=== PATIENT | female | born 1995 | race Caucasian/White ===

== ENCOUNTER → 2017-04-22 | Outpatient (CLI) | payer MEDICAID ==
[~2017-04-22] MED LIST: BACTRIM DS 8001 TAB PO; CLINDAMYCIN HC300 MG PO; FLAGYL 500MG.500 MG PO; FLEXERIL10 MG PO; IRON TABLETS325 MG PO; KEFLEX500 M1 PO; MACROBID 100MG100 MG PO; NOMEDS; NOMEDS XX; PHENERGAN W/CO473 ML PO; PREDNISONE1 MG PO; PRENATAL PLUS1 TA1 PO; PROZAC 20MG CAP20 MG OR; ULTRAM50 MG PO; VOLTAREN75 MG PO; ZANTAC 150150 MG PO; ZITHROMAX Z-PA250 M1 PO; ZOFRAN ODT8 MG PO; Zofran4 MG PO
== END ==
LOC: LAB 17:53
DX: Z34.80 Encounter for supervision of other normal pregnancy, unspecified trimester (principal)

== ENCOUNTER 2017-05-05 17:50 | Outpatient (CLI) | payer MEDICAID ==
[~2017-05-05] VITALS: Ht 160 cm; Wt 62.1 kg
[2017-05-05 18:03] VITALS: BP 99/56
[2017-05-05 18:22] LABS: URINE BILIRUBIN - DIPSTICK NEGATIVE (NEG); URINE BLOOD NEGATIVE (NEG)
== END 2017-05-05 19:10 | disposition home or self-care (01) ==
LOC: OBOUT 17:50 → OB 17:50 → OBOUT 19:10
PROVIDERS: Nurse Practitioner Obstetrics & Gynecology
DX: O26.93 Pregnancy related conditions, unspecified, third trimester (principal); Z3A.37 37 weeks gestation of pregnancy; M54.5 Low back pain; M25.552 Pain in left hip; M25.551 Pain in right hip